=== PATIENT | male | born 1945 | race Caucasian/White ===

== ENCOUNTER 2025-05-19 10:01 | Outpatient (RCR) | payer MEDICARE, OTHER ==
[~2025-05-19 10:01] MED LIST: AMLO1TAB24; ATOR40TA75; HYDR12.55; LABE20TAB
== END 2025-05-22 ==
LOC: M ONCR 10:01
PROVIDERS: ATTEND General Practice
DX: Z51.0 Encounter for antineoplastic radiation therapy (principal); C44.42 Squamous cell carcinoma of skin of scalp and neck

== ENCOUNTER → 2025-06-19 | Outpatient (CLI) | payer MEDICARE, OTHER | LOC: M ONCR 11:11 | PROVIDERS: ATTEND General Practice | DX: C44.42 Squamous cell carcinoma of skin of scalp and neck (principal); Z92.3 Personal history of irradiation ==